=== PATIENT | male | born 1995 | race African-American/Black ===

== ENCOUNTER 2018-05-16 14:33 | Emergency (ER) | payer SELFPAY ==
[~2018-05-16] VITALS: Ht 182.9 cm; Wt 95.3 kg
[2018-05-16] MEDS: cefTRIAXone IM 250 MG VIAL IM ONE (15:28)
[2018-05-16] MEDS: LIDO:MAALOX 1:1 20 ML SINGLE DOSE. SWSW ONE (15:29)
[2018-05-16] MEDS: metroNIDAZOLE 500 MG TABLET PO ONE (15:29)
[2018-05-16] MEDS: AZITHROMYCIN 250 MG TABLET. PO ONE (15:30)
[2018-05-16] MEDS: ONDANSETRON ODT 4 MG TAB.RAPDIS. PO ONE (15:30)
[2018-05-16 15:52] LABS: BILIRUBIN,URINE NEGATIVE (NEG); CLARITY,URINE CLOUDY; COLOR,URINE YELLOW; NITRITE,URINE NEGATIVE (NEG); PH,URINE 7.5; PROTEIN,URINE 30 mg/dL (NEG-TRACE); UROBILINOGEN,URINE 0.2 mg/dL (0.2 mg/dL)
[2018-05-16 16:00] VITALS: BP 146/80
[2018-05-16 16:01] LABS: RBC,URINE 0 /HPF (0-2); WBC,URINE >40 /HPF (0-4)
[2018-05-16 16:02] LABS: BACTERIA,URINE 0 /HPF (0-FEW)
[2018-05-16] MEDS ORDERED: ONDA4TAB10 SL (16:11)
[2018-05-16] MEDS ORDERED: OMEP20TA8 PO (16:11)
--- NOTE | 2018-05-16 16:11 | PHYS DOC ---
Past Medical History Past Medical History: Anxiety, Bronchitis, Migraines Past Surgical History: No Surgical History Alcohol Use: Occasionally Drug Use: Marijuana Adult General Chief Complaint Chief Complaint: GI PROBLEM HPI HPI Patient is a 22 year old male with a history of anxiety, bronchitis, migraine headaches, who presents today complaining of an 8 out of 10 epigastric pain due to his acid reflex that began 3 days ago. Patient states he has had a couple episodes of vomiting from this. Patient describes the pain as a burning sensation in his chest and epigastric area. Patient states he supposed to be on acid reflex medications but does not take it. Patient is also requesting to be treated for STDs. He states he messes around with many women. Review of Systems Review of Systems Constitutional: Denies fever or chills [] Eyes: Denies change in visual acuity, redness, or eye pain [] HENT: Denies nasal congestion or sore throat [] Respiratory: Denies cough or shortness of breath [] Cardiovascular: Reports burning sensation in chest.in GI: Reports epigastric abdominal pain with nausea, vomiting, denies bloody stools or diarrhea [] : Denies dysuria or hematuria [] Musculoskeletal: Denies back pain or joint pain [] Integument: Denies rash or skin lesions [] Neurologic: Denies headache, focal weakness or sensory changes [] All other systems were reviewed and found to be within normal limits, except as documented in this note. Current Medications Current Medications Current Medications Medications (Trade) Dose Ordered Sig/Graham Start Time Stop Time Status Last Admin Dose Admin Azithromycin (Zithromax) 1,000 mg 1X ONCE 05/16/18 15:00 05/16/18 15:01 DC 05/16/18 15:30 1,000 MG Ceftriaxone Sodium (Rocephin Im) 250 mg 1X ONCE 05/16/18 15:00 05/16/18 15:01 DC 05/16/18 15:28 250 MG Metronidazole (Flagyl) 2,000 mg 1X ONCE 05/16/18 15:00 05/16/18 15:01 DC 05/16/18 15:29 2,000 MG Multi-Ingredient Mouthwash/Gargle (Gi Cocktail) 20 ml 1X ONCE 05/16/18 15:00 05/16/18 15:01 DC 05/16/18 15:29 20 ML Ondansetron HCl (Zofran Odt) 4 mg 1X ONCE 05/16/18 15:00 05/16/18 15:01 DC 05/16/18 15:30 4 MG Allergies Allergies Allergies Coded Allergies Type Severity Reaction Last Updated Verified diphenhydramine Allergy Unknown SWELLING 05/16/18 Yes Physical Exam Physical Exam Constitutional: Well developed, well nourished, no acute distress, non-toxic appearance. [] HENT: Normocephalic, atraumatic, bilateral external ears normal, oropharynx moist, no oral exudates, nose normal. [] Eyes: PERRLA, EOMI, conjunctiva normal, no discharge. [] Neck: Normal range of motion, no tenderness, supple, no stridor. [] Cardiovascular:Heart rate regular rhythm, no murmur [] Lungs & Thorax: Bilateral breath sounds clear to auscultation [] Abdomen: Bowel sounds normal, soft, no tenderness, no masses, no pulsatile masses. [] Skin: Warm, dry, no erythema, no rash. [] Back: No tenderness, no CVA tenderness. [] Extremities: No tenderness, no cyanosis, no clubbing, ROM intact, no edema. [] Neurologic: Alert and oriented X 3, normal motor function, normal sensory function, no focal deficits noted. [] Psychologic: Affect normal, judgement normal, mood normal. [] Current Patient Data Vital Signs Vital Signs Date Time Temp Pulse Resp B/P (MAP) Pulse Ox O2 Delivery O2 Flow Rate FiO2 05/16/18 16:00 74 16 146/80 (102) 99 Room Air 05/16/18 14:46 98.8 98.8 Lab Values Laboratory Tests Test 05/16/18 15:21 Urine Collection Type Unknown Urine Color Yellow Urine Clarity Cloudy Urine pH 7.5 Urine Specific [place] 1.025 Urine Protein 30 mg/dL (NEG-TRACE) Urine Glucose (UA) Negative mg/dL (NEG) Urine Ketones (Stick) Negative mg/dL (NEG) Urine Blood Negative (NEG) Urine Nitrite Negative (NEG) Urine Bilirubin Negative (NEG) Urine Urobilinogen Dipstick 0.2 mg/dL (0.2 mg/dL) Urine Leukocyte Esterase Large (NEG) Urine RBC 0 /HPF (0-2) Urine WBC >40 /HPF (0-4) Urine Bacteria 0 /HPF (0-FEW) Urine Mucus Mod /LPF EKG EKG [] Radiology/Procedures Radiology/Procedures [] Course & Med Decision Making Course & Med Decision Making Pertinent Labs and Imaging studies reviewed. (See chart for details) This is a 22-year-old male patient with history of acid reflex presenting to the ED today with symptoms consistent with acid reflex. Was given Zofran and GI cocktail in the ED with good relief. Also requesting to be treated for STDs. Prophylaxis treatment provided. Education provided. Provided GI for follow-up. Discharged with omeprazole. Staff Physician Addendum: I was working in the ER during the course of this patient's visit. I was available for consultation as needed, but I was not directly involved in the care of this patient. Dragon Disclaimer Dragon Disclaimer This electronic medical record was generated, in whole or in part, using a voice recognition dictation system. Departure Departure Impression: Primary Impression: GERD (gastroesophageal reflux disease) Additional Impression: Concern about STD in female without diagnosis Disposition: 01 HOME, SELF-CARE Condition: STABLE Referrals: UNKNOWN PCP NAME (PCP) SANNA PENA MD follow up in one week Patient Instructions: Diet for Gastroesophageal Reflux Disease, Adult, Gastroesophageal Reflux Disease, Adult, Sexually Transmitted Disease Additional Instructions: You were evaluated for acid reflex. We put you Omeprazole. Take it every day. Avoid spicy fatty foods. Avoid eating before bed. You were also treated prophylaxis for STDs. Use protection at all times. Contact all your sex partners , let them know you were treated for STDs and have them get treatment too Scripts Ondansetron (ZOFRAN ODT) 4 Mg Tab.rapdis 1 TAB SL Q8HRS, #15 TAB Prov: JIM LARIOS APRN 05/16/18 Omeprazole (OMEPRAZOLE) 20 Mg Tablet. 1 TAB PO DAILY, #30 TAB 0 Refills Prov: JIM LARIOS APRN 05/16/18 Problem Qualifiers Primary Impression: GERD (gastroesophageal reflux disease) Esophagitis presence: without esophagitis Qualified Codes: K21.9 - Gastro- esophageal reflux disease without esophagitis JIM LARIOS APRN May 16, 2018 16:11 REGGIE GOMEZ MD May 16, 2018 17:31
== END 2018-05-16 16:32 | disposition home or self-care (01) ==
LOC: ER 14:33
DX: K21.9 Gastro-esophageal reflux disease without esophagitis (principal); Z20.2 Contact with and (suspected) exposure to infections with a predominantly sexual mode of transmission; F41.9 Anxiety disorder, unspecified; G43.909 Migraine, unspecified, not intractable, without status migrainosus; Z88.8 Allergy status to other drugs, medicaments and biological substances
CPT/HCPCS: 81001; 87491; 87591; 96372; 99284; J0696; Q0144; Q0162